=== PATIENT | male | born 1985 | race Caucasian/White ===

== ENCOUNTER → 2018-11-10 09:06 | Outpatient (CLI) | payer OTHER, SELFPAY ==
--- NOTE | 2018-11-10 | DI.ECHO.S_ITS ---
[facility]---------+ [facility] +---------+ : : [address] : [address] : : : : [id number] : : : : Phone: [phone] +---------+ Echocardiogram Report + + :Name: REYMUNDO TAPIA Study Date: 11/10/2018 Height: 71 in : :[facility] Exam Location: IS Weight: 192 lb : : Gender: Male BSA: 2.1 m2 : :: 1985 Age: 33 yrs BP: 115/80 mmHg: :Reason For Study: AI : : Performed By: Josh Steinberg : :Referring: JEANNETTE STERLING : + + Interpretation Summary The left ventricle is normal in size. The ejection fraction is estimated to be 60-65%. The right ventricle is normal in size and function. The aortic valve is bicuspid. There is no aortic valve stenosis. There is trace aortic regurgitation. The ascending aorta is moderately enlarged. 4.2 cm in diameter. The IVC is of normal diameter and collapses greater than 50% with a sniff. This suggests a low right atrial pressure of 3 mm Hg. Procedure: A two-dimensional transthoracic echocardiogram with color flow and Doppler was performed. The study quality was technically good. There is no prior echocardiogram noted for this patient. The patient was in normal sinus rhythm during the exam. The patient was bradycardic with a heart rate of 53-67 beats per minute. Left Ventricle: The left ventricle is normal in size. There is normal left ventricular wall thickness. There is no thrombus. The ejection fraction is estimated to be 60-65%. There are no focal wall motion abnormalities. Diastolic parameters suggest probable normal left ventricular diastolic function and normal filling pressures. Right Ventricle: The right ventricle is normal in size and function. Atria: Both atria are normal in size. The interatrial septum is intact with no evidence for an atrial septal defect. Mitral Valve: The mitral valve is normal in structure and function. Redundant elongated chordae are noted. There is trace mitral regurgitation. Aortic Valve: The aortic valve is bicuspid. There is no aortic valve sclerosis. There is no aortic valve stenosis. There is trace aortic regurgitation. Tricuspid Valve: The tricuspid valve is normal in structure and function. There is a trace or physiologic amount of tricuspid regurgitation. Pulmonary artery pressures cannot be estimated because of the lack of a measurable TR jet velocity. Pulmonic Valve: The pulmonic valve is normal in structure and function. There is trace pulmonic regurgitation. Great Vessels: The aortic root is normal size. The ascending aorta is moderately enlarged. The aortic arch is normal in size. The pulmonary artery is normal size. The IVC is of normal diameter and collapses greater than 50% with a sniff. This suggests a low right atrial pressure of 3 mm Hg. Pericardium/ Pleura There is no pericardial effusion. There is no pleural effusion. MMode/2D Measurements & Calculations LVIDd: 4.8 cm LVOT diam: 2.5 cm LVIDs: 2.8 cm Ao root diam: 3.4 cm FS: 42.0 % Aortic Jxn: 3.0 cm EPSS: 0.34 cm asc Aorta Diam: 4.2 cm IVSd: 0.86 cm LVPWd: 1.00 cm LV page. diameter/BSA (cm/m^2): 2.3 LV sys. diameter/BSA (cm/m^2): 1.3 LA dimension: 2.9 cm RA long axis: 5.4 cm LA A2 area: 17.2 cm2 RA area: 20.3 cm2 LA A4 area: 15.7 cm2 RA vol: 64.2 ml LA length (vol): 5.2 cm RA : 31.0 ml/m2 LA vol: 43.9 ml LA vol index: 21.2 ml/m2 RVD1 (basal): 4.4 cm RVD2 (mid): 3.0 cm Doppler Measurements & Calculations Ao V2 max: 238.6 cm/sec LVOT Max William: 94.7 cm/sec Ao V2 mean: 187.0 cm/sec LV V1 max P.6 mmHg Ao max P.8 mmHg LV V1 VTI: 23.9 cm Ao mean P.0 mmHg CAMILO(I,D): 2.2 cm2 Ao V2 VTI: 51.9 cm CAMILO(V,D): 1.9 cm2 sev ratio: 0.46 CAMILO indexed to BSA (cm^2/m^2): 1.1 MV E max william: 107.2 cm/sec PA V2 max: 71.3 cm/sec MV A max william: 57.2 cm/sec PA V2 mean: 50.7 cm/sec MV E/A: 1.9 PA mean P.1 mmHg Med Peak E' William: 12.0 cm/sec PA pr(Accel): 24.1 mmHg E/E' med: 9.0 PA Accel Time: 0.12 sec Lat Peak E' William: 17.1 cm/sec E/E' lat: 6.3 E/e' average: 7.6 MV dec time: 0.15 sec SV(LVOT): 113.5 ml Reading Physician:10:05 AM
== END ==
PROVIDERS: PCP Family Medicine; Visit Provider Internal Medicine Cardiovascular Disease
DX: Q23.1 Congenital insufficiency of aortic valve (principal); I77.89 Other specified disorders of arteries and arterioles
CPT/HCPCS: 93306

== ENCOUNTER → 2019-12-18 14:46 | Outpatient (CLI) | payer OTHER, SELFPAY ==
[2019-12-18 16:19] LABS: COVID19 -Nasal RAPID Negative (Negative)
== END ==
PROVIDERS: PCP Family Medicine; Visit Provider Physician Assistant
DX: Z11.59 Encounter for screening for other viral diseases (principal)
CPT/HCPCS: 87635

== ENCOUNTER → 2020-10-29 15:54 | Outpatient (CLI) | payer OTHER, SELFPAY ==
--- NOTE | 2020-10-29 | DI.ECHO.S_ITS ---
[facility] +---------+ [facility] +---------+ : : [address] : : : : [id number] : : : : Phone: [phone] +---------+ Echocardiogram Report + + :Name: REYMUNDO TAPIA Study Date: 10/29/2020 Height: 71 in : :[facility] ReadingLocation: Weight: 190 lb : : Gender: Male BSA: 2.1 m2 : :: 1985 Age: 35 yrs BP: 130/88 mmHg: :Reason For Study: CARDIAC MURMUR : :Ordering Physician: ASHER, : :JEANNETTE Performed By: Beata Huynh : :Referring: JEANNETTE STERLING : + + Interpretation Summary Left ventricular systolic function appears normal with an estimated ejection fraction of 65 to 70% without any focal wall motion abnormality and appears slightly more dynamic compared to the previous exam. Left ventricular size and wall thickness appear normal with an end-diastolic volume of 118 mL. Diastolic function appears normal with probable normal filling pressures. The right ventricle is borderline enlarged with normal systolic function but visually appears unchanged from the previous study. Right ventricular systolic pressure cannot be estimated but CVP is likely around 3 mmHg. Both atria are normal in size. The aortic valve is bicuspid but appears to open well and visually appears unchanged from the previous study. Yet, the peak aortic velocity has increased from 2.4 m/s to 2.8 m/s with the mean gradient increasing from 15mmHg to 20 mmHg, suggesting possible mild aortic stenosis although this increase may be reflective of increased cardiac output due to more dynamic left ventricular systolic function. Yet, the severity ratio has decreased from 0.46 down to 0.31. There is trivial aortic regurgitation. There is no other valvular abnormality. The ascending aorta is moderately enlarged but unchanged from the previous exam in the aortic arch is mildly enlarged. Procedure: A two-dimensional transthoracic echocardiogram with color flow and Doppler was performed. The study quality was technically adequate. Comparison is made with the echocardiogram of 11/10/2018. The patient was in sinus rhythm with heart rates between 57-70 bpm during the exam. Left Ventricle: The left ventricle is normal in size and wall thickness. The estimated left ventricular end diastolic volume is 118 ml. Left ventricular systolic function appears normal without focal wall motion abnormalities. The ejection fraction is estimated to be 65-70%. This is slightly more dynamic compared to the previous study. Diastolic parameters suggest probable normal left ventricular diastolic function and normal filling pressures. Right Ventricle: The right ventricle is borderline dilated. The right ventricular systolic function is normal. This is unchanged compared to the previous study. Atria: Both atria are normal in size. The interatrial septum grossly appears intact with no obvious evidence for an atrial septal defect. There is no Doppler evidence for an interatrial shunt. Mitral Valve: The mitral valve is normal in structure and function. There is trace mitral regurgitation. Aortic Valve: The aortic valve is bicuspid. The aortic valve opens well. There is mild aortic stenosis. This is perhaps slightly progressive compared to the previous study. The peak aortic velocity is 2.84 m/sec. The aortic valve mean gradient is 20 mmHg. There is trace aortic regurgitation. Tricuspid Valve: The tricuspid valve is normal in structure and function. There is trace tricuspid regurgitation. Pulmonary artery pressures cannot be estimated because of the lack of a measurable TR jet velocity but the IVC suggests a CVP of around 3 mmHg. Pulmonic Valve: The pulmonic valve is not well visualized. There is trace pulmonic regurgitation. Great Vessels: The aortic root is normal size. The ascending aorta is moderately enlarged. This is similar compared to the previous study. The aortic arch is mildly enlarged. The IVC is of normal diameter and collapses greater than 50% with a sniff. This suggests a low right atrial pressure of 3 mm Hg. Pericardium/ Pleura There is no pericardial effusion. There is no pleural effusion. MMode/2D Measurements & Calculations LVIDd: 5.4 cm LVOT diam: 2.5 cm LVIDs: 2.9 cm Ao root diam: 3.2 cm FS: 46.3 % asc Aorta Diam: 4.3 cm IVSd: 0.97 cm Ao Arch Diam (Prox Trans): 3.1 cm LVPWd: 0.82 cm LV page. diameter/BSA (cm/m^2): 2.6 LV sys. diameter/BSA (cm/m^2): 1.4 LA A2 area: 20.9 cm2 RA long axis: 5.6 cm LA A4 area: 17.9 cm2 RA area: 14.7 cm2 LA length (vol): 5.4 cm RA vol: 32.9 ml LA vol: 59.1 ml RA : 15.9 ml/m2 LA vol index: 28.6 ml/m2 IVC diam: 1.5 cm RVD1 (basal): 4.5 cm TAPSE: 2.3 cm Doppler Measurements & Calculations Ao V2 max: 284.2 cm/sec LVOT Max William: 88.3 cm/sec Ao V2 mean: 193.8 cm/sec LV V1 max P.1 mmHg Ao max P.4 mmHg LV V1 VTI: 19.1 cm Ao mean P.7 mmHg CAMILO(I,D): 1.5 cm2 Ao V2 VTI: 62.3 cm CAMILO(V,D): 1.5 cm2 sev ratio: 0.31 CAMILO indexed to BSA (cm^2/m^2): 0.71 MV E max william: 90.7 cm/sec PA V2 max: 126.3 cm/sec MV A max william: 69.8 cm/sec PA V2 mean: 84.1 cm/sec MV E/A: 1.3 PA mean P.3 mmHg Med Peak E' William: 15.0 cm/sec PA pr(Accel): 22.5 mmHg E/E' med: 6.1 Lat Peak E' William: 20.2 cm/sec E/E' lat: 4.5 E/e' average: 5.3 MV dec time: 0.31 sec SV(LVOT): 91.9 ml Reading Physician:07:51 AM
== END ==
PROVIDERS: PCP Internal Medicine; Referring Provider Internal Medicine Cardiovascular Disease; Visit Provider Internal Medicine Cardiovascular Disease
DX: R01.1 Cardiac murmur, unspecified (principal); Q23.1 Congenital insufficiency of aortic valve; I77.89 Other specified disorders of arteries and arterioles
CPT/HCPCS: 93306

== ENCOUNTER → 2022-12-07 08:03 | Outpatient (CLI) | payer OTHER, SELFPAY ==
--- NOTE | 2022-12-07 08:04 | DI.ECHO.S_ITS ---
[facility] +---------+ [facility] +---------+ : : [address] : : : : [id number] : : : : Phone: [phone] +---------+ Echocardiogram Report + + :Name: REYMUNDO TAPIA Study Date: 12/07/2022 Height: 71 in : :[facility] ReadingLocation: Weight: 185 lb : : Gender: Male BSA: 2.0 m2 : :: 1985 Age: 37 yrs BP: 120/81 mmHg: :Reason For Study: CONGENITAL INSUFFICIENCY OF AORTIC VALVE : :Ordering Physician: ASHER, : :JEANNETTE Performed By: Beata Huynh : :Referring: JEANNETTE STERLING : + + Interpretation Summary The left ventricle is normal in size and wall thickness. The left ventricular ejection fraction is normal. The ejection fraction is estimated to be 60-65%. There has been no significant change in LVEF since the previous exam. The right ventricle is normal in size and function. The aortic valve is bicuspid. The peak aortic velocity is 2.9 m/sec. The aortic valve mean gradient is 19 mmHg. The calculated aortic valve area is 1.7 cm2. Mild aortic stenosis. No significant aortic stenosis. The peak aortic velocity on the previous exam was 2.6??2.84 m/sec. There is trace aortic regurgitation. Ascending aorta diameter maximum about 4.5 cm. Previously 4.2 to 4.3 cm. BP: 120/81 mmHg Procedure: A two-dimensional transthoracic echocardiogram with color flow and Doppler was performed. The study quality was technically adequate. Comparison is made with the echocardiogram of 11/20/2021. The patient was in sinus bradycardia with heart rates between 51-57 bpm during the exam. Left Ventricle: The left ventricle is normal in size and wall thickness. There is no thrombus. The ejection fraction is estimated to be 60-65%. The left ventricular ejection fraction is normal. There has been no significant change since the previous exam. There are no focal wall motion abnormalities. Diastolic parameters suggest probable normal left ventricular diastolic function and normal filling pressures. Right Ventricle: The right ventricle is normal in size and function. Atria: The left atrial size is normal. There has been no significant change since the previous study. Right atrial size is normal. There is no Doppler evidence for an interatrial shunt. Mitral Valve: The mitral valve is normal in structure and function. There is trace mitral regurgitation. Aortic Valve: The aortic valve is bicuspid. The aortic valve is slightly calcified. The peak aortic velocity is 2.9 m/sec. The aortic valve mean gradient is 19 mmHg. The calculated aortic valve area is 1.7 cm2. The peak aortic velocity on the previous exam was 2.6??2.84 m/sec. There is trace aortic regurgitation. Tricuspid Valve: The tricuspid valve is normal in structure and function. No tricuspid regurgitation. Pulmonary artery pressures cannot be estimated because of the lack of a measurable TR jet velocity. Pulmonic Valve: The pulmonic valve leaflets are thin and pliable; valve motion is normal. There is no pulmonic valvular regurgitation. Great Vessels: The aortic root is normal size. The ascending aorta is moderately enlarged. The IVC is of normal diameter and collapses greater than 50% with a sniff. This suggests a low right atrial pressure of 3 mm Hg. Pericardium/ Pleura There is no pericardial effusion. There is no pleural effusion. MMode/2D Measurements & Calculations LVIDd: 5.3 cm LVOT diam: 2.4 cm LVIDs: 3.2 cm Ao root diam: 3.4 cm FS: 39.3 % asc Aorta Diam: 4.3 cm IVSd: 0.90 cm Ao Arch Diam (Prox Trans): 3.1 cm LVPWd: 0.90 cm LV page. diameter/BSA (cm/m^2): 2.6 LV sys. diameter/BSA (cm/m^2): 1.6 LA A2 area: 18.4 cm2 RA long axis: 5.3 cm LA A4 area: 14.1 cm2 RA area: 18.1 cm2 LA length (vol): 5.2 cm RA vol: 52.8 ml LA vol: 42.1 ml RA : 25.9 ml/m2 LA vol index: 20.7 ml/m2 IVC diam: 1.7 cm RVD1 (basal): 3.7 cm RVD2 (mid): 2.8 cm TAPSE: 2.3 cm Doppler Measurements & Calculations Ao V2 max: 286.7 cm/sec LVOT Max William: 104.7 cm/sec Ao V2 mean: 194.1 cm/sec LV V1 max P.4 mmHg Ao max P.9 mmHg LV V1 VTI: 22.9 cm Ao mean P.2 mmHg CAMILO(I,D): 1.7 cm2 Ao V2 VTI: 62.7 cm CAMILO(V,D): 1.7 cm2 sev ratio: 0.36 CAMILO indexed to BSA (cm^2/m^2): 0.82 MV E max william: 97.8 cm/sec PA V2 max: 95.5 cm/sec MV A max william: 42.9 cm/sec PA V2 mean: 62.4 cm/sec MV E/A: 2.3 PA mean P.8 mmHg Med Peak E' William: 12.6 cm/sec PA pr(Accel): 19.1 mmHg E/E' med: 7.8 Lat Peak E' William: 20.8 cm/sec E/E' lat: 4.7 E/e' average: 6.2 MV dec time: 0.23 sec SV(LVOT): 104.7 ml Reading Physician:12:48 PM
== END ==
PROVIDERS: PCP Internal Medicine; Referring Provider Internal Medicine Cardiovascular Disease; Visit Provider Internal Medicine Cardiovascular Disease
DX: Q23.1 Congenital insufficiency of aortic valve (principal); I77.810 Thoracic aortic ectasia; I51.7 Cardiomegaly; I44.0 Atrioventricular block, first degree; I35.0 Nonrheumatic aortic (valve) stenosis; I35.1 Nonrheumatic aortic (valve) insufficiency
CPT/HCPCS: 93306

== ENCOUNTER → 2024-01-02 08:15 | Outpatient (CLI) | payer OTHER, SELFPAY ==
--- NOTE | 2024-01-02 08:18 | DI.ECHO.S_ITS ---
[facility] +---------+ [facility] : : [address] : [address] : : [id number] : : Phone: [phone] Echocardiogram Report + + :Name: REYMUNDO TAPIA Study Date: 01/02/2024 Height: 71 in : :[facility] ReadingLocation: Weight: 185 lb : : Gender: Male BSA: 2.0 m2 : :: 1985 Age: 38 yrs BP: 132/90 mmHg: :Reason For Study: BICUSPID AORTIC VALVE : :Ordering Physician: DANIEL, : :KALEB Marino Performed By: Beata Huynh : :Referring: KALEB SANCHEZ W : + + Interpretation Summary The left ventricle is normal in size and wall thickness. The left ventricular ejection fraction is normal. The ejection fraction is estimated to be 60-65%. The right ventricle is normal in size and function. There is mild mitral regurgitation. The aortic valve is bicuspid. The aortic valve is slightly calcified. The peak aortic velocity is 2.6 m/sec. The aortic valve mean gradient is 17 mmHg. The peak aortic velocity on the previous exam was 2.9 m/sec. There is mild aortic stenosis. There is no hemodynamically significant valvular aortic stenosis. The IVC is dilated (diameter is greater than 2.1 cm) yet it collapses greater than 50% with a sniff. This suggests a right atrial pressure of 8 mm Hg. The ascending aorta is moderately enlarged. 4.5 cm in diameter. In December 07, 2022, 4.5 cm in diameter as well. BP: 132/90 mmHg Procedure: A two-dimensional transthoracic echocardiogram with color flow and Doppler was performed. The study quality was technically adequate. Comparison is made with the echocardiogram of 12/07/2022. The patient was in sinus rhythm with heart rates between 60-70 bpm during the exam. Left Ventricle: The left ventricle is normal in size and wall thickness. There is no thrombus. The ejection fraction is estimated to be 60-65%. The left ventricular ejection fraction is normal. There are no focal wall motion abnormalities. Diastolic parameters suggest probable normal left ventricular diastolic function and normal filling pressures. Right Ventricle: The right ventricle is normal in size and function. Atria: The left atrial size is normal. There has been no significant change since the previous study. Right atrial size is normal. There is no Doppler evidence for an interatrial shunt. Mitral Valve: The mitral valve is normal. There is mild mitral regurgitation. Aortic Valve: The aortic valve is bicuspid. The aortic valve is slightly calcified. There is mild aortic stenosis. The peak aortic velocity is 2.6 m/sec. The aortic valve mean gradient is 17 mmHg. The peak aortic velocity on the previous exam was 2.9 m/sec. There is no hemodynamically significant valvular aortic stenosis. There is trace aortic regurgitation. Tricuspid Valve: The tricuspid valve is normal in structure and function. There is trace tricuspid regurgitation. Pulmonary artery pressures cannot be estimated because of the lack of a measurable TR jet velocity. Pulmonic Valve: The pulmonic valve leaflets are thin and pliable; valve motion is normal. There is a trace or physiologic amount of pulmonic regurgitation. Great Vessels: The aortic root is normal size. The aortic arch is normal in size. The ascending aorta is moderately enlarged. The IVC is dilated (diameter is greater than 2.1 cm) yet it collapses greater than 50% with a sniff. This suggests a right atrial pressure of 8 mm Hg. Pericardium/ Pleura There is no pericardial effusion. There is no pleural effusion. MMode/2D Measurements & Calculations LVIDd: 5.3 cm LVOT diam: 2.1 cm LVIDs: 3.0 cm Ao root diam: 3.1 cm FS: 42.8 % asc Aorta Diam: 4.5 cm EPSS: 0.74 cm Ao Arch Diam (Prox Trans): 2.8 cm IVSd: 0.81 cm LVPWd: 0.70 cm LV page. diameter/BSA (cm/m^2): 2.6 LV sys. diameter/BSA (cm/m^2): 1.5 LA A2 area: 18.4 cm2 RA long axis: 5.1 cm LA A4 area: 12.6 cm2 RA area: 13.9 cm2 LA length (vol): 4.9 cm RA vol: 31.9 ml LA vol: 40.1 ml RA : 15.6 ml/m2 LA vol index: 19.6 ml/m2 IVC diam: 2.2 cm RVD1 (basal): 3.5 cm RVD2 (mid): 2.7 cm TAPSE: 1.9 cm Doppler Measurements & Calculations Ao V2 max: 262.1 cm/sec LVOT Max William: 102.6 cm/sec Ao V2 mean: 182.9 cm/sec LV V1 max P.2 mmHg Ao max P.7 mmHg LV V1 VTI: 20.7 cm Ao mean P.8 mmHg CAMILO(I,D): 1.3 cm2 Ao V2 VTI: 53.6 cm CAMILO(V,D): 1.3 cm2 sev ratio: 0.39 CAMILO indexed to BSA (cm^2/m^2): 0.65 MV E max william: 69.1 cm/sec PA V2 max: 108.5 cm/sec MV A max william: 44.1 cm/sec PA V2 mean: 76.1 cm/sec MV E/A: 1.6 PA mean P.6 mmHg Med Peak E' William: 12.9 cm/sec PA pr(Accel): 36.2 mmHg E/E' med: 5.3 Lat Peak E' William: 19.5 cm/sec E/E' lat: 3.5 E/e' average: 4.4 MV dec time: 0.20 sec SV(LVOT): 70.8 ml Reading Physician:12:50 PM
== END ==
PROVIDERS: PCP Internal Medicine; Referring Provider Nurse Practitioner; Visit Provider Nurse Practitioner
DX: I08.0 Rheumatic disorders of both mitral and aortic valves; Q23.81 Bicuspid aortic valve; I35.0 Nonrheumatic aortic (valve) stenosis; I77.89 Other specified disorders of arteries and arterioles; I77.810 Thoracic aortic ectasia
CPT/HCPCS: 93306

== ENCOUNTER → 2024-12-31 08:05 | Outpatient (CLI) | payer OTHER, SELFPAY ==
--- NOTE | 2024-12-31 08:08 | DI.ECHO.S_ITS ---
[facility] +---------+ Hospital : : [address] : : [address] : : [id number] : : Phone: [phone] Echocardiogram Report + + :Name: REYMUNDO TAPIA Study Date: 12/31/2024 Height: 71 in : :[facility] ReadingLocation: Weight: 190 lb : : Gender: Male BSA: 2.1 m2 : :: 1985 Age: 39 yrs BP: 119/75 mmHg: :Reason For Study: Ascending aorta dilation : :Ordering Physician: ASHER, : :JEANNETTE Performed By: Krishna Lawson : :Referring: JEANNETTE STERLING : + + Interpretation Summary The left ventricle is normal in size and wall thickness. The ejection fraction is estimated to be 65-70%. Previous LVEF 60 to 65% The right ventricle is normal in size and function. The aortic valve is bicuspid. The peak aortic velocity is 2.6 m/sec. The aortic valve mean gradient is 15.6 mmHg. The peak aortic velocity on the previous exam was 2.6 m/sec. There is mild aortic stenosis. There has been no significant change since the previous study. The IVC is of normal diameter and collapses greater than 50% with a sniff. This suggests a low right atrial pressure of 3 mm Hg. 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 Previously 4.5 cm Proximal aortic arch has a max diameter of 3.2 cm. BP: 119/75 mmHg Procedure: A two-dimensional transthoracic echocardiogram with color flow and Doppler was performed. The study quality was technically adequate. Comparison is made with the echocardiogram of 01/02/2024. The patient was in normal sinus rhythm during the exam. The heart rate ranged between 55-61 bpm during the study. Left Ventricle: The left ventricle is normal in size and wall thickness. There is no thrombus. The ejection fraction is estimated to be 65-70%. There are no focal wall motion abnormalities. Normal diastolic function. Right Ventricle: The right ventricle is normal in size and function. Atria: The left atrial size is normal. There has been no significant change since the previous study. Right atrial size is normal. There is no Doppler evidence for an interatrial shunt. Mitral Valve: The mitral valve leaflets appear normal. There is no evidence of stenosis, fluttering, or prolapse. There is trace mitral regurgitation. Aortic Valve: The aortic valve is bicuspid. There is mild aortic stenosis. The calculated aortic valve area is 1.9 cm2. The peak aortic velocity is 2.6 m/sec. The aortic valve mean gradient is 15.6 mmHg. sev ratio: 0.43. The peak aortic velocity on the previous exam was 2.6 m/sec. There is trace aortic regurgitation. There is an eccentric jet of aortic insufficiency directed against the anterior mitral leaflet. There has been no significant change since the previous study. Tricuspid Valve: The tricuspid valve leaflets are thin and pliable. There is trace tricuspid regurgitation. The right ventricular systolic pressure is estimated to be at least 19 mmHg based on an estimated right atrial pressure of 3 mm Hg. Pulmonic Valve: The pulmonic valve leaflets are thin and pliable; valve motion is normal. There is a trace or physiologic amount of pulmonic regurgitation. Great Vessels: The aortic root is normal size. 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 Previously 4.5 cm Proximal aortic arch has a max diameter of 3.2 cm. There has been no significant change since the previous study. The pulmonary artery is normal size. The IVC is of normal diameter and collapses greater than 50% with a sniff. This suggests a low right atrial pressure of 3 mm Hg. Pericardium/ Pleura There is no pericardial effusion. MMode/2D Measurements & Calculations LVIDd: 5.1 cm LVOT diam: 2.4 cm LVIDs: 3.1 cm Ao root diam: 3.4 cm FS: 39.9 % asc Aorta Diam: 4.4 cm IVSd: 0.86 cm Ao Arch Diam (Prox Trans): 3.2 cm LVPWd: 0.93 cm LV page. diameter/BSA (cm/m^2): 2.5 LV sys. diameter/BSA (cm/m^2): 1.5 LA A2 area: 19.3 cm2 RA long axis: 5.2 cm LA A4 area: 14.9 cm2 RA area: 16.1 cm2 LA length (vol): 5.1 cm RA vol: 42.9 ml LA vol: 48.4 ml RA : 20.8 ml/m2 LA vol index: 23.4 ml/m2 IVC diam: 1.5 cm RVD1 (basal): 2.6 cm RVD2 (mid): 2.0 cm TAPSE: 2.3 cm Doppler Measurements & Calculations Ao V2 max: 264.6 cm/sec LVOT Max William: 112.4 cm/sec Ao V2 mean: 183.4 cm/sec LV V1 max P.1 mmHg Ao max P.0 mmHg LV V1 VTI: 24.7 cm Ao mean P.6 mmHg CAMILO(I,D): 1.9 cm2 Ao V2 VTI: 57.6 cm CAMILO(V,D): 1.9 cm2 sev ratio: 0.43 CAMILO indexed to BSA (cm^2/m^2): 0.91 MV E max william: 98.7 cm/sec TR max william: 198.0 cm/sec MV A max william: 42.9 cm/sec TR max P.7 mmHg MV E/A: 2.3 PA V2 max: 94.8 cm/sec Med Peak E' William: 12.0 cm/sec PA V2 mean: 70.2 cm/sec E/E' med: 8.2 PA mean P.1 mmHg Lat Peak E' William: 17.5 cm/sec PA pr(Accel): 26.3 mmHg E/E' lat: 5.6 E/e' average: 6.9 MV dec time: 0.17 sec SV(LVOT): 108.4 ml Reading Physician:12:07 PM
== END ==
LOC: ECHO 08:07
PROVIDERS: Visit Provider Internal Medicine Cardiovascular Disease
DX: Q23.81 Bicuspid aortic valve (principal); I77.810 Thoracic aortic ectasia; I35.0 Nonrheumatic aortic (valve) stenosis
CPT/HCPCS: 93306